=== PATIENT | male | born 2000 | race Caucasian/White ===

== ENCOUNTER 2022-07-21 14:09 | Outpatient (CLI) | payer BC, SELFPAY ==
--- NOTE | 2022-07-21 14:30 | MR_ITS ---
[address] [address] Phone:?[phone] Fax:?[phone] Referring Physician Information: Sixto Diaz M.D. [address] [facility] [address] Phone:?[phone] Fax:?[phone] Patient:Nia Licona D.O.B:?2000 Sex:?Male Phone:?[phone] [facility] MRN:?[id number] Exam Date:?07/21/2022 ? EXAM: MRI of the RIGHT KNEE, without contrast CLINICAL HISTORY: Acute right knee pain. COMPARISONS: None available. TECHNICAL: MR sequences of the right knee: sagittals: PD, T2 FS coronals: PD, T2, STIR axials: PD, T2 FS CONTRAST: None SEDATION: None FINDINGS: Bones: No fracture, bone marrow contusion, or other suspicious bone marrow signal abnormality. Patellofemoral joint: Cartilage: Intact. Retinacula: The medial and lateral retinacula are intact. Fat pads: The infrapatellar, quadriceps, and prefemoral fat pads are unremarkable. Knee joint: Effusion: Moderate right knee joint effusion. Popliteal cyst: None. Intra-articular bodies: None. Medial compartment: Medial meniscus: There is approximately 5 mm of medial meniscal extrusion. There is mild mild medial compartment osteophytosis. Focal edema-like signal within the peripheral aspect of the medial tibial plateau is best seen on coronal series 9 images 13 through 19. There is mild free edge blunting of the body of the medial meniscus. 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 Lateral compartment: Lateral meniscus: Intact. Cartilage: Intact. Ligaments: Anterior cruciate ligament: Intact. Posterior cruciate ligament: Intact. Medial collateral ligament: Intact. Posterior oblique ligament: Intact. Fibular collateral ligament: Intact. Posterolateral corner: The distal biceps femoris tendon, iliotibial band, popliteus tendon, popliteus muscle, popliteofibular ligament, and arcuate ligament are intact. Posteromedial corner: The semimembranosus and pes anserine tendons are intact. Extensor mechanism: Patellar tendon: Intact. Quadriceps tendon: Intact. IMPRESSION: 1. Approximately 5 mm of medial meniscal extrusion. Mild free edge blunting of the body of the medial meniscus. 2. Focal edema-like signal within the peripheral aspect of the medial tibial plateau could reflect stress reaction and/or degenerative subchondral bone marrow edema given suspected overlying ill-defined chondromalacia and possible associated chondral fissuring but is nonspecific. No well-defined chondral defect is identified. Mild medial compartment osteophytosis. 3. Moderate right knee joint effusion. 4. No ligamentous, tendinous, or lateral meniscal pathology of the right knee. RCB Electronically signed on 07/22/2022 6:58:00 AM by Andry Turner M.D.
== END 2022-07-21 14:10 | disposition home or self-care (01) ==
PROVIDERS: PCP Family Medicine; Visit Provider Family Medicine
DX: M25.561 Pain in right knee (principal); M25.461 Effusion, right knee
CPT/HCPCS: 73721